=== PATIENT | male | born 1965 | race Caucasian/White ===

== ENCOUNTER 2018-09-23 09:13 | Outpatient (CLI) | payer BC, SELFPAY ==
--- NOTE | 2018-09-23 09:09 | DI.RAD_ITS ---
SYMPTOMS/DIAGNOSIS: KNEE PAIN LEFT KNEE: The bony structures are normally mineralized. Chondrocalcinosis is identified. There is mild periarticular hypertrophic spurring. SUMMARY: Mild DJD is demonstrated.
== END 2018-09-23 09:33 ==
PROVIDERS: Visit Provider Student in an Organized Health Care Education/Training Program
DX: M25.562 Pain in left knee (principal); M17.12 Unilateral primary osteoarthritis, left knee; M11.262 Other chondrocalcinosis, left knee
CPT/HCPCS: 73562